=== PATIENT | female | born 1955 | race Caucasian/White ===

== ENCOUNTER → 2016-05-29 | Outpatient (CLI) | payer OTHER ==
[~2016-05-29] VITALS: Ht 160 cm; Wt 81.2 kg
[~2016-05-29] MED LIST: ASPI1TAB PO; ATOR40TA PO; CALC500T49 PO; FENO160T10 PO; FOSA70TA PO; LIDOCAINE 2% INJ 100 MG/5 ML SDV (FOR ANES.) As Ordered ONE; LISI10TA2 PO; METF500T PO; NS 1,000 ML IV SCH; OMEP40CA2 PO; PROPOFOL 200 MG/20 ML VIAL As Ordered ONE; VITA50003 PO
--- NOTE | 2016-05-29 11:32 | ROOR ---
Patient Name: Romelia Esteban Procedure Date: 05/29/2016 11:16 AM Date of : 1955 Age: 60 Room: [facility] Gender: Female Note Status: Finalized Procedure: Upper GI endoscopy Indications: Heartburn, Abnormal UGI series Providers: Dimitris MAI MD Referring MD: CARLA DURÁN MD Requesting Provider: Medicines: Monitored Anesthesia Care Complications: No immediate complications. Procedure: Pre-Anesthesia Assessment: - The heart rate, respiratory rate, oxygen saturations, blood pressure, adequacy of pulmonary ventilation, and response to care were monitored throughout the procedure. The Endoscope was introduced through the mouth, and advanced to the second part of duodenum. The upper GI endoscopy was accomplished without difficulty. The patient tolerated the procedure well. Findings: The examined esophagus was normal. Very small (insignificant) Hiatal Hernia. Mild inflammation characterized by erosions was found on the greater curvature of the stomach. Biopsies were taken with a cold forceps for histology. The exam of the stomach was otherwise normal. The examined duodenum was normal. Impression: - Normal esophagus. - Very small (insignificant) Hiatal Hernia. - Mild gastritis with a few shallow linear erosions. Biopsied. - Stomach is otherwise normal. - Normal examined duodenum. Recommendation: - Use Prilosec (omeprazole) 40 mg PO daily. - No ibuprofen, naproxen, or other non-steroidal anti-inflammatory drugs. - Tylenol is OK to use. - Telephone endoscopist for pathology results in 2 weeks. Dimitris Mai MD Dimitris MAI MD 05/29/2016 11:31:48 AM This report has been signed electronically. Number of Addenda: 0 Note Initiated On: 05/29/2016 11:16 AM Estimated Blood Loss: Estimated blood loss: none.
--- NOTE | 2016-05-29 11:46 | ROOR ---
Patient Name: Romelia Esteban Procedure Date: 05/29/2016 11:18 AM Date of : 1955 Age: 60 Room: [facility] Gender: Female Note Status: Finalized Procedure: Colonoscopy Indications: Screening for colorectal malignant neoplasm Providers: Dimitris MAI MD Referring MD: CARLA DURÁN MD Requesting Provider: Medicines: Monitored Anesthesia Care Complications: No immediate complications. Procedure: Pre-Anesthesia Assessment: - The heart rate, respiratory rate, oxygen saturations, blood pressure, adequacy of pulmonary ventilation, and response to care were monitored throughout the procedure. The Colonoscope was introduced through the anus and advanced to the cecum, identified by appendiceal orifice and ileocecal valve. The colonoscopy was performed without difficulty. The patient tolerated the procedure well. The quality of the bowel preparation was good. Findings: The perianal and digital rectal examinations were normal. Three sessile polyps were found in the recto-sigmoid colon and sigmoid colon. The polyps were diminutive in size. These polyps were removed with a cold snare. Resection and retrieval were complete. A few small-mouthed diverticula were found in the sigmoid colon. Internal hemorrhoids were found during retroflexion. The hemorrhoids were moderate. The exam was otherwise without abnormality on direct and retroflexion views. Impression: - Three diminutive polyps at the recto-sigmoid colon and in the sigmoid colon, removed with a cold snare. Resected and retrieved. - Mild diverticulosis in the sigmoid colon. - Internal hemorrhoids. - The examination was otherwise normal on direct and retroflexion views. Recommendation: - Await pathology results. - Telephone endoscopist for pathology results in 2 weeks. - If the pathology report reveals adenomatous tissue, then repeat the colonoscopy for surveillance in 3 years. - If the pathology report indicates hyperplastic polyp, then repeat colonoscopy for screening purposes in 10 years. Dimitris Mai MD Dimitris MAI MD 05/29/2016 11:46:01 AM This report has been signed electronically. Number of Addenda: 0 Note Initiated On: 05/29/2016 11:18 AM Estimated Blood Loss: Estimated blood loss: none.
[2016-05-29 12:10] VITALS: BP 130/78
== END ==
LOC: M OPP 10:41
PROVIDERS: ATTEND Internal Medicine Gastroenterology
DX: Z12.11 Encounter for screening for malignant neoplasm of colon (principal); D12.7 Benign neoplasm of rectosigmoid junction; D12.5 Benign neoplasm of sigmoid colon; K57.30 Diverticulosis of large intestine without perforation or abscess without bleeding; K64.8 Other hemorrhoids; R12 Heartburn; R93.3 Abnormal findings on diagnostic imaging of other parts of digestive tract; K29.70 Gastritis, unspecified, without bleeding; I10 Essential (primary) hypertension; Z79.82 Long term (current) use of aspirin; Z79.899 Other long term (current) drug therapy; Z88.8 Allergy status to other drugs, medicaments and biological substances

== ENCOUNTER → 2016-09-18 | Outpatient (CLI) | payer OTHER ==
[~2016-09-18] MED LIST changes: -LIDOCAINE 2% INJ 100 MG/5 ML SDV (FOR ANES.) As Ordered ONE; -NS 1,000 ML IV SCH; -PROPOFOL 200 MG/20 ML VIAL As Ordered ONE
[2016-09-18 11:07] LABS: MEAN CORPUSCULAR HEMOGLOBIN 30.8 pg (27.0-33.0); MEAN CORPUSCULAR HGB CONC 33.4 g/dl (32.0-36.5); MEAN CORPUSCULAR VOLUME 92.2 fl (80.0-96.0); RED CELL DISTRIBUTION WIDTH 13.5 % (11.5-14.5); WHITE BLOOD COUNT 6.5 K/mm3 (4.0-10.0)
[2016-09-18 11:45] LABS: ALBUMIN 3.8 GM/DL (3.2-5.2); ALKALINE PHOSPHATASE 78 U/L (45-117); ALT/SGPT 40 U/L (12-78); ANION GAP 7 MEQ/L (8-16); AST/SGOT 21 U/L (15-37); BILIRUBIN,TOTAL 0.6 MG/DL (0.2-1.0); BLOOD UREA NITROGEN 13 MG/DL (7-18); CALCIUM LEVEL 10.3 MG/DL (8.8-10.2); CARBON DIOXIDE LEVEL 30 MEQ/L (21-32); CHLORIDE LEVEL 104 MEQ/L (98-107); CHOLESTEROL LEVEL 163 MG/DL (<200); GLOMERULAR FILTRATION RATE > 60.0 (>45); GLUCOSE, FASTING 93 MG/DL (80-110); SODIUM LEVEL 141 MEQ/L (136-145); TOTAL PROTEIN 7.6 GM/DL (6.4-8.2); TRIGLYCERIDES LEVEL 162 MG/DL (<150)
== END ==
LOC: M LAB 09:22
PROVIDERS: ATTEND Family Medicine
DX: E78.5 Hyperlipidemia, unspecified (principal); I10 Essential (primary) hypertension; E55.9 Vitamin D deficiency, unspecified

== ENCOUNTER → 2016-12-17 | Outpatient (CLI) | payer OTHER ==
[~2016-12-17] MED LIST changes: -ATOR40TA PO; +ATOR40TA75 PO; -METF500T PO; +METF500T13 PO; +VITA1CAP40 PO; -VITA50003 PO
[2016-12-17 11:06] LABS: MEAN CORPUSCULAR HEMOGLOBIN 30.9 pg (27.0-33.0); MEAN CORPUSCULAR HGB CONC 33.9 g/dl (32.0-36.5); MEAN CORPUSCULAR VOLUME 91.2 fl (80.0-96.0); RED CELL DISTRIBUTION WIDTH 13.8 % (11.5-14.5); WHITE BLOOD COUNT 5.8 K/mm3 (4.0-10.0)
[2016-12-17 11:21] LABS: ALBUMIN 3.6 GM/DL (3.2-5.2); ALBUMIN/GLOBULIN RATIO 1.03 (1.00-1.93); ALKALINE PHOSPHATASE 73 U/L (45-117); ALT/SGPT 28 U/L (12-78); ANION GAP 5 MEQ/L (8-16); AST/SGOT 22 U/L (15-37); BILIRUBIN,TOTAL 0.9 MG/DL (0.2-1.0); BLOOD UREA NITROGEN 15 MG/DL (7-18); CALCIUM LEVEL 9.4 MG/DL (8.8-10.2); CARBON DIOXIDE LEVEL 31 MEQ/L (21-32); CHLORIDE LEVEL 106 MEQ/L (98-107); CHOLESTEROL LEVEL 165 MG/DL (<200); CREATININE FOR GFR 0.78 MG/DL (0.55-1.02); GLOMERULAR FILTRATION RATE > 60.0 (>45); GLUCOSE, FASTING 93 MG/DL (80-110); POTASSIUM SERUM 3.8 MEQ/L (3.5-5.1); SODIUM LEVEL 142 MEQ/L (136-145); TOTAL PROTEIN 7.1 GM/DL (6.4-8.2); TRIGLYCERIDES LEVEL 134 MG/DL (<150)
== END ==
LOC: M LRY 09:16
PROVIDERS: ATTEND Family Medicine
DX: E78.5 Hyperlipidemia, unspecified (principal); I10 Essential (primary) hypertension; M85.9 Disorder of bone density and structure, unspecified

== ENCOUNTER → 2017-11-26 | Outpatient (CLI) | payer OTHER ==
[2017-11-26 12:43] LABS: HEMATOCRIT 44.4 % (36.0-47.0); HEMOGLOBIN 14.7 g/dl (12.0-15.5); MEAN CORPUSCULAR HEMOGLOBIN 30.2 pg (27.0-33.0); MEAN CORPUSCULAR HGB CONC 33.1 g/dl (32.0-36.5); MEAN CORPUSCULAR VOLUME 91.4 fl (80.0-96.0); PLATELET COUNT, AUTOMATED 193 10^3/uL (150-450); RED BLOOD COUNT 4.86 10^6/uL (4.00-5.40); RED CELL DISTRIBUTION WIDTH 13.8 % (11.5-14.5); WHITE BLOOD COUNT 6.4 10^3/uL (4.0-10.0)
[2017-11-26 13:21] LABS: ALBUMIN 3.9 GM/DL (3.2-5.2); ALBUMIN/GLOBULIN RATIO 1.03 (1.00-1.93); ALKALINE PHOSPHATASE 84 U/L (45-117); ALT/SGPT 33 U/L (12-78); ANION GAP 8 MEQ/L (8-16); AST/SGOT 17 U/L (7-37); BILIRUBIN,TOTAL 0.6 MG/DL (0.2-1.0); BLOOD UREA NITROGEN 16 MG/DL (7-18); CALCIUM LEVEL 9.3 MG/DL (8.8-10.2); CARBON DIOXIDE LEVEL 29 MEQ/L (21-32); CHLORIDE LEVEL 105 MEQ/L (98-107); CHOLESTEROL LEVEL 184 MG/DL (<200); CHOLESTEROL RISK RATIO 2.705 (<5); CPK CREATINE PHOSPHOKINASE 66 U/L (26-192); CREATININE FOR GFR 0.86 MG/DL (0.55-1.30); GLOMERULAR FILTRATION RATE > 60.0 (>45); GLUCOSE, FASTING 102 MG/DL (70-100); HDL CHOLESTEROL 68 MG/DL (>40); LDL CHOLESTEROL 81.4 MG/DL (<100); NON-HDL-C 116 MG/DL; POTASSIUM SERUM 4.5 MEQ/L (3.5-5.1); SODIUM LEVEL 142 MEQ/L (136-145); TOTAL PROTEIN 7.7 GM/DL (6.4-8.2); TRIGLYCERIDES LEVEL 173 MG/DL (<150)
[2017-11-26 13:42] LABS: MALB URINE SIEMENS 61.2 MG/L
== END ==
LOC: M LRY 10:31
DX: E78.2 Mixed hyperlipidemia (principal); I10 Essential (primary) hypertension; R73.01 Impaired fasting glucose
CPT/HCPCS: 82550

== ENCOUNTER → 2017-12-10 | Outpatient (CLI) | payer OTHER ==
[2017-12-10 11:11] LABS: ALBUMIN 3.8 GM/DL (3.2-5.2); ALBUMIN/GLOBULIN RATIO 1.03 (1.00-1.93); ALKALINE PHOSPHATASE 74 U/L (45-117); ALT/SGPT 30 U/L (12-78); AST/SGOT 20 U/L (7-37); BILIRUBIN,DIRECT 0.2 MG/DL (0.0-0.2); BILIRUBIN,TOTAL 0.6 MG/DL (0.2-1.0); CHOLESTEROL LEVEL 164 MG/DL (<200); CHOLESTEROL RISK RATIO 2.603 (<5); CPK CREATINE PHOSPHOKINASE 74 U/L (26-192); HDL CHOLESTEROL 63 MG/DL (>40); NON-HDL-C 101 MG/DL; TOTAL PROTEIN 7.5 GM/DL (6.4-8.2); TRIGLYCERIDES LEVEL 150 MG/DL (<150)
== END ==
LOC: M LAB 10:12
DX: E78.2 Mixed hyperlipidemia (principal)
CPT/HCPCS: 82550

== ENCOUNTER 2018-04-24 19:53 | Observation (INO) | payer OTHER ==
[~2018-04-24] VITALS: Ht 165.1 cm; Wt 69.3 kg
[~2018-04-24 19:53] MED LIST changes: -VITA1CAP40 PO; +VITA50005 PO
[2018-04-24] MEDS ORDERED: metoprolol (20:09)
[2018-04-24] MEDS ORDERED: AMLO5TAB4 PO (20:09)
[2018-04-24] MEDS ORDERED: SEVE800T3 PO (20:09)
[2018-04-24 20:50] LABS: BASO # 0.1 10^3/uL (0.0-0.2); EOS # 0.6 10^3/uL (0.0-0.50); EOS % 4.7 % (0.0-3.0); HEMATOCRIT 29.5 % (36.0-47.0); HEMOGLOBIN 9.6 g/dl (12.0-15.5); LYMPH # 2.5 10^3/uL (1.5-4.5); LYMPH % 20.9 % (24.0-44.0); MEAN CORPUSCULAR HEMOGLOBIN 29.4 pg (27.0-33.0); MEAN CORPUSCULAR HGB CONC 32.5 g/dl (32.0-36.5); MEAN CORPUSCULAR VOLUME 90.5 fl (80.0-96.0); MONO # 1.2 10^3/uL (0.0-0.8); MONO % 9.8 % (0.0-5.0); NEUTROPHILS # 7.5 10^3/uL (1.8-7.7); NEUTROPHILS % 62.5 % (36.0-66.0); PLATELET COUNT, AUTOMATED 260 10^3/uL (150-450); RED BLOOD COUNT 3.26 10^6/uL (4.00-5.40)
[2018-04-24 21:02] LABS: INR 1.1; PROTHROMBIN TIME 14.3 SECONDS (12.1-14.4)
[2018-04-24 21:03] LABS: PARTIAL THROMBOPLASTIN TIME 24.9 SECONDS (25.4-37.6)
--- NOTE | 2018-04-24 21:24 | REPVR ---
EXAM: US Bilateral Duplex Lower Extremity Veins EXAM DATE/TIME: 04/24/2018 9:11 PM CLINICAL HISTORY: 62 years old, female; Abnormal findings; Abnormal lab test; Elevated d-dimer; Additional info: Positive d-dimer, recent surgery TECHNIQUE: Real-time duplex ultrasound of the Bilateral Lower Extremities with 2-D foley scale, color Doppler flow and spectral waveform analysis. Complete exam focused on the bilateral lower extremity veins. COMPARISON: No relevant prior studies available. FINDINGS: Right deep veins: Unremarkable. The common femoral, femoral and popliteal veins are patent without thrombus. Normal compressibility, augmentation response and Doppler waveforms. Right superficial veins: Saphenofemoral junction is patent without thrombus. Left deep veins: Unremarkable. The common femoral, femoral and popliteal veins are patent without thrombus. Normal compressibility, augmentation response and Doppler waveforms. Left superficial veins: Saphenofemoral junction is patent without thrombus. Soft tissues: Unremarkable. IMPRESSION: No sonographic evidence of deep vein thrombosis. Electronically signed by: Demario Hernandez On 04/24/2018 21:24:01 PM
[2018-04-24 21:35] LABS: ALBUMIN 3.3 GM/DL (3.2-5.2); ALT/SGPT 17 U/L (12-78); BILIRUBIN,DIRECT 0.1 MG/DL (0.0-0.2); BILIRUBIN,TOTAL 0.3 MG/DL (0.2-1.0); BLOOD UREA NITROGEN 20 MG/DL (7-18); CALCIUM LEVEL 8.5 MG/DL (8.8-10.2); CARBON DIOXIDE LEVEL 28 MEQ/L (21-32); CHLORIDE LEVEL 103 MEQ/L (98-107); CK-MB VALUE MASS < 1.0 NG/ML (<3.6); CPK CREATINE PHOSPHOKINASE 40 U/L (26-192); CREATININE FOR GFR 2.72 MG/DL (0.55-1.30); GLOMERULAR FILTRATION RATE 18.8 (>45); GLUCOSE, FASTING 105 MG/DL (70-100); NT-PRO BNP 463 PG/ML (<125); POTASSIUM SERUM 2.9 MEQ/L (3.5-5.1); SODIUM LEVEL 141 MEQ/L (136-145); TROPONIN I < 0.02 NG/ML (< 0.10)
[2018-04-24 21:57] LABS: MAGNESIUM LEVEL 1.7 MG/DL (1.8-2.4)
[2018-04-24] MEDS ORDERED: MAG SULF 1GM/100ML (MAG RUN) 1 GM in APPROPRIATE DILUENT 1 EA IV ONE (22:15)
[2018-04-24] MEDS ORDERED: POTASSIUM CHLORIDE 10 MEQ SR TABLET PO ONE (22:15)
[2018-04-24] MEDS ORDERED: METO25TA4 PO (22:19)
[2018-04-24] MEDS ORDERED: METF500T13 PO (22:19)
[2018-04-24] MEDS ORDERED: FOSA70TA PO (22:20)
[2018-04-24] MEDS ORDERED: BISACODYL 5 MG TAB PO PRN (23:00)
[2018-04-24] MEDS ORDERED: ONDANSETRON 4MG/2ML VIAL (J2405) IV PRN (23:00)
[2018-04-24] MEDS ORDERED: GLUCAGON FOR INJ 1 MG VIAL (J1610) SC PRN (23:00)
[2018-04-24] MEDS ORDERED: ACETAMINOPHEN TAB 650MG DOSE (2X325MG) PO PRN (23:00)
[2018-04-24] MEDS ORDERED: MAGNESIUM OXIDE 400 MG TAB (MAG-OX) PO ONE (23:00)
[2018-04-24] MEDS ORDERED: BISACODYL 10 MG SUPP PR PRN (23:00)
[2018-04-24] MEDS ORDERED: GLUCOSE 4 GM CHEW TABLET PO PRN (23:00)
[2018-04-24] MEDS ORDERED: DEXTROSE 50% 50 ML SYRINGE IV PRN (23:00)
--- NOTE | 2018-04-24 23:06 | HPEPDOC ---
[facility] Medical History & Physical Date of Admission Apr 24, 2018 Attending Physician: GRISEL MARTINEZ MD History and Physical CHIEF COMPLAINT: [Right-sided chest pain] HISTORY OF PRESENT ILLNESS: [59-year-old female with significant past medical history hyperlipidemia, hypertension, GERD, diabetes who earlier this year had hysterectomy at [place] and subsequently developed multiorgan failure including renal failure and liver failure and thus was transferred to [facility]. Patient states that she did not have LA but may have had LA at that time. Patient has right lower quadrant bruising at the site with of blood to pooled. Her physicians does not know why her blood loss is at that specific location but she is recovering. Her bruising is improving. She recovered from most organ failure but she is still on hemodialysis. Goal is coming off dialysis if her kidney function to recovers. Patient had chest pain that started this past Saturday located in the right side underneath her right breast only when she yawns or takes deep breaths. Patient states the Tylenol seemed to help with the pain. Patient initially tachycardic in the ER but normal he states shes not tachycardic and no palpitation. Patient denies of any fever, cough, sputum production, abdominal pain or diarrhea, or dysuria. She has been doing well in light of but occurred early this month. Patient gets hemodialysis on Saturday, Saturday, Saturday. Due to the holiday, patient saw her PCP today for the right- sided chest pain and PCP obtain d-dimer which was positive. Patient was told to come to the emergency room further evaluation and treatment.ER consulted renal to recommended utilizing V/Q scan incident CT of the chest as patient told to be in a short-term dialysis and will try to avoid contrast at this time. Patient not hypoxemic nor tachycardic. Patient also had lower extremity Doppler which is negative for DVT. Patient is being admitted for further evaluation for VQ scan. Review system: 12 point review systems negative other than those described in HPI Past medical history: Recent multiorgan failure after hysterectomy, acute renal failure resulting in hemodialysis, hypertension, hyperlipidemia, GERD, diabetes Surgical history: Hysterectomy Social history: No smoking, drinking, drug abuse Family medical history: Noncontributory ALLERGIES: Please see below. HOME MEDICATIONS: Please see below. PHYSICAL EXAMINATION: VITAL SIGNS: Please see below GENERAL APPEARANCE: Resting comfortably HEENT: Normocephalic, PERRLA, Mucous moist, CARDIOVASCULAR: S1,S2, pulse present, regularly, regular, not tachycardic, right upper chest hemodialysis port LUNGS: Equal air entry b/l, no wheezes or crackle, not short of breath ABDOMEN: Soft, BS present, no tenderness, no guarding, lower right quadrant bruising that healing, surgical scars without signs of active infection GENITOURINARY: No Garibay EXTREMITIES: B/L no edema, capillary refill present SKIN: Warm, No fever NEUROLOGICAL: Cranial nerves grossly intact PSYCHIATRIC: Normal mood and affect for current situation EKG: Heart rate of 86, no ST elevation, nonspecific ST changes IMAGING: [Lower extremity Doppler bilateral: No sonographic evidence of deep vein thrombosis. ] Assessment and plan: Right sided atypical chest pain. Chest x-ray Telemetry, serial cardiac enzyme, echo VQ scan (CTA chest not utilized in order to preserve patient's renal function if possible) thyroid profile Lower extremity with Doppler negative for DVT I&O monitoring, daily weight Respiratory treatment, oxygen as needed Supportive care with Tylenol Hypokalemia and hypomagnesemia Replace and monitor judiciously as patient is a dialysis patient Telemetry End-stage renal disease on hemodialysis (M, W, F) Consult with Dr. Sim nephrology for dialysis on Saturday Diabetes Finger sick monitoring, hold oral medication sliding scale, utilize long-acting insulin as needed Hypertension Resume amlodipine, metoprolol Hyperlipidemia Resume Statin GERD Resume omeprazole DVT prophylaxis with heparin subcutaneous Vital Signs Vital Signs Date Time Temp Pulse Resp B/P (MAP) Pulse Ox O2 Delivery O2 Flow Rate FiO2 04/24/18 20:02 04/24/18 19:55 98.9 109 18 98 Laboratory Data Labs 24H Laboratory Tests 2 04/24/18 20:44: Immature Granulocyte % (Auto) 1.1, White Blood Count 12.0H, Red Blood Count 3.26L, Hemoglobin 9.6L, Hematocrit 29.5L, Mean Corpuscular Volume 90.5, Mean Corpuscular Hemoglobin 29.4, Mean Corpuscular Hemoglobin Concent 32.5, Red Cell Distribution Width 14.8H, Platelet Count 260, Neutrophils (%) (Auto) 62.5, Lymphocytes (%) (Auto) 20.9L, Monocytes (%) (Auto) 9.8H, Eosinophils (%) (Auto) 4.7H, Basophils (%) (Auto) 1.0, Neutrophils # (Auto) 7.5, Lymphocytes # (Auto) 2.5, Monocytes # (Auto) 1.2H, Eosinophils # (Auto) 0.6H, Basophils # (Auto) 0.1, Nucleated Red Blood Cells % (auto) 0.0, Prothrombin Time 14.3, Prothromb Time International Ratio 1.10, Activated Partial Thromboplast Time 24.9L, Anion Gap 10, Glomerular Filtration Rate 18.8L, Calcium Level 8.5L, Magnesium Level 1.7L, Aspartate Amino Transf (AST/SGOT) 15, Alanine Aminotransferase (ALT/SGPT) 17, Alkaline Phosphatase 101, Total Bilirubin 0.3, Direct Bilirubin 0.1, Total Creatine Kinase 40, Creatine Kinase MB < 1.0, Creatine Kinase MB Relative Index 2.50, Troponin I < 0.02, TD-Jwh-R-Type Natriuretic Peptide 463H, Total Protein 7.0, Albumin 3.3, Albumin/Globulin Ratio 0.89L CBC/BMP Laboratory Tests 04/24/18 20:44 Red Blood Count 3.26 L, Mean Corpuscular Volume 90.5, Mean Corpuscular Hemoglobin 29.4, Mean Corpuscular Hemoglobin Concent 32.5, Red Cell Distribution Width 14.8 H, Neutrophils (%) (Auto) 62.5, Lymphocytes (%) (Auto) 20.9 L, Monocytes (%) (Auto) 9.8 H, Eosinophils (%) (Auto) 4.7 H, Basophils (%) (Auto) 1.0, Neutrophils # (Auto) 7.5, Lymphocytes # (Auto) 2.5, Monocytes # (Auto) 1.2 H, Eosinophils # (Auto) 0.6 H, Basophils # (Auto) 0.1 Home Medications Scheduled Alendronate Sodium (Fosamax) 70 Mg Tab, 70 MG PO 1XWK TAKES ON MONDAYS Amlodipine Besylate (Amlodipine Besylate) 5 Mg Tab, 5 MG PO DAILY Atorvastatin Calcium (Atorvastatin Calcium) 40 Mg Tab, 40 MG PO DAILY Metformin Hydrochloride (Metformin HCl) 500 Mg Tab, 500 MG PO DAILY Metoprolol Tartrate (Metoprolol Tartrate) 25 Mg Tab, 25 MG PO DAILY Omeprazole (Omeprazole) 40 Mg Cap, 40 MG PO Q2D Sevelamer Carbonate (Sevelamer Carbonate) 800 Mg Tab, 800 MG PO TID Allergies Coded Allergies: Dog Dander (Unverified Allergy, Mild, eyes red, itchy, 04/24/18) Bismuth Subsalicylate (Unverified Adverse Reaction, Mild, vomiting, 04/24/18) FELIPE SWANN MD Apr 24, 2018 23:06
[2018-04-25 05:56] LABS: HEMOGLOBIN 9.4 g/dl (12.0-15.5); MEAN CORPUSCULAR HEMOGLOBIN 29.5 pg (27.0-33.0); MEAN CORPUSCULAR HGB CONC 32.4 g/dl (32.0-36.5); MEAN CORPUSCULAR VOLUME 90.9 fl (80.0-96.0); PLATELET COUNT, AUTOMATED 240 10^3/uL (150-450); RED BLOOD COUNT 3.19 10^6/uL (4.00-5.40); WHITE BLOOD COUNT 9.8 10^3/uL (4.0-10.0)
[2018-04-25] MEDS: HEPARIN SOD (PORCINE) 5000 UNITS/ML VIAL SC SCH ×3 (06:29→21:27)
[2018-04-25 06:36] LABS: BLOOD UREA NITROGEN 21 MG/DL (7-18); CALCIUM LEVEL 8.8 MG/DL (8.8-10.2); CARBON DIOXIDE LEVEL 27 MEQ/L (21-32); CHLORIDE LEVEL 108 MEQ/L (98-107); CK-MB VALUE MASS < 1.0 NG/ML (<3.6); CPK CREATINE PHOSPHOKINASE 32 U/L (26-192); CREATININE FOR GFR 2.77 MG/DL (0.55-1.30); FREE THYROXINE INDEX 2.9 % (1.3-4.8); GLOMERULAR FILTRATION RATE 18.4 (>45); GLUCOSE, FASTING 96 MG/DL (70-100); MB/CK RELATIVE INDEX 3.12 (< OR =4); POTASSIUM SERUM 3.1 MEQ/L (3.5-5.1); SODIUM LEVEL 144 MEQ/L (136-145); T UPTAKE 34 % (30-39); THYROID STIMULATING HORMONE 0.339 uIU/ML (0.358-3.740); THYROXINE (T4) 8.6 UG/DL (4.5-12.0); TROPONIN I < 0.02 NG/ML (< 0.10)
[2018-04-25 07:10] LABS: MAGNESIUM LEVEL 2.3 MG/DL (1.8-2.4)
[2018-04-25] MEDS: HumaLOG INSULIN (NovoLOG) PER UNIT SC SCH ×3 (07:30→17:40)
[2018-04-25] MEDS ORDERED: POTASSIUM CHLORIDE 10 MEQ SR TABLET PO ONE (08:00)
--- NOTE | 2018-04-25 08:06 | REP ---
Portable chest x-ray: Single view. History: Chest pain. No comparison chest x-ray. Findings: A right-sided tunnel catheter is seen in place with its tip in the expected location of the right atrium. The lungs are symmetrically aerated and clear. Pleural angles are sharp. Cardiomediastinal silhouette is unremarkable. EKG monitoring electrodes are noted. Impression: No acute disease. Right-sided tunnel catheter in place. Electronically Signed by Robert Zamudio MD 04/25/2018 08:20 A
[2018-04-25] MEDS: amLODIPine 5 MG TAB PO SCH (08:26)
[2018-04-25] MEDS: METOPROLOL TART 25 MG TABLET PO SCH (08:26)
[2018-04-25] MEDS: ATORVASTATIN 20 MG TAB PO SCH (08:27)
[2018-04-25] MEDS ORDERED: OMEPRAZOLE 20 MG CAP PO SCH (09:00)
--- NOTE | 2018-04-25 09:54 | IPNPDOC ---
Text Note Date of Service The patient was seen on 04/25/18. NOTE Chief complaint: Right-sided chest SUBJECTIVE: Patient is a 62-year-old female with past medical history of hyperlipidemia,hypertension, GERD, diabetes, multiorgan failure including renal failure and liver failure, following a hysterectomy. She is currently on dialysis, scheduled for Saturday, with Saturday. She presented to her PCP yesterday due to right-sided chest pain, that was agrevated by deep breath and yawning. Her PCP ordered D-dimer, which is elevated. Patient was subsequently sent to the ED for further evaluation for possible PE. On intial presentation, patient was tachycardic. A v/q scan was preformed, due to patient being unable to tolerate CT with contrast due to her renal failure. The V/Q scan was negative, and well as a lower extremity doppler for DVT. She was examined at bedside this morning. She is complaining of right-sided is worse with deep breath and yawning. Denies other chest pain, denies nausea, denied vomiting, denies changes in vision.. Denies shortness of breath, or difficulty breathing. Patient was afebrile at night prior. No overnight activities OBJECTIVE: PHYSICAL EXAMINATION: GENERAL APPEARANCE: Alert no acute distress, resting comfortably in bed, complains of pain with deep breath SKIN: Warm, well perfused. Right upper chest hemodialysis port ENT: Palate intact, foley tympanic membrane no bulging, no erythema, Neck supple, no thyromegaly LUNGS: Clear to auscultation bilaterally. Complaints of chest pain with full trae st expansion HEART: Normal S1, S2. No murmurs, no rubs, no gallops ABDOMEN: Soft. No masses. Bowel sounds are present. Musculoskeletal: palpable tenderness on patient's rib approximately rib #4 on patients backa and anterior chest EXTREMITIES: Moves all extremities equally. No gross deformities. PULSES: 2+ upper and lower extremity . LABORATORY DATA: Please see below. IMAGING: Chest Xray: No acute disease. Right-sided tunnel catheter in place. (04/25/18) V/Q scan: No sonographic evidence of deep vein thrombosis. ASSESSMENT AND PLAN: A 62-year-old female presenting with right sided chest pain. She has a past medical history of diabetes, GERD, multiple failure including renal failure, currently on dialysis Saturday, Saturday and Saturday. She was admitted for PE, rule out, as well as continue dialysis. Plan: Right-sided chest, unknown etiology, rule out rib fracture, rule out PE, muscle strain is also a possibility. Rule out GA. Perhaps secondary to upper respiratory virus. --EKG did not indicate any GA, troponins negative, initial and repeat --Chest x-ray did not show any rib fractures --Lower extremity Doppler was negative --VQ scan negative --Respiratory panel negative --Manage pain with supportive care Tachycardia --Resolved, patient denied any chest pain, denies any breathing difficulty, denies any nausea, denies any vomiting, denies any pain in her calves. We'll co ntinue monitoring End-stage renal disease on hemodialysis (M, W, F) --Consult with Dr. Sim nephrology for dialysis on Saturday --Hold nephrotoxins, metformin Hypokalemia and hypomagnesemia --replacement ordered, --Telemetry --Nephrology consulted for dialysis Diabetes Finger sick monitoring, hold oral medication sliding scale, utilize long-acting insulin as needed Hypertension Resume amlodipine, metoprolol Hyperlipidemia Resume Statins GERD Resume omeprazole DVT prophylaxis with heparin subcutaneous VS,Fishbone, I+O VS, Fishbone, I+O Laboratory Tests 04/24/18 20:44 Red Blood Count 3.26 L, Mean Corpuscular Volume 90.5, Mean Corpuscular Hemoglobin 29.4, Mean Corpuscular Hemoglobin Concent 32.5, Red Cell Distribution Width 14.8 H, Neutrophils (%) (Auto) 62.5, Lymphocytes (%) (Auto) 20.9 L, Monocytes (%) (Auto) 9.8 H, Eosinophils (%) (Auto) 4.7 H, Basophils (%) (Auto) 1.0, Neutrophils # (Auto) 7.5, Lymphocytes # (Auto) 2.5, Monocytes # (Auto) 1.2 H, Eosinophils # (Auto) 0.6 H, Basophils # (Auto) 0.1 04/25/18 05:31 Red Blood Count 3.19 L, Mean Corpuscular Volume 90.9, Mean Corpuscular Hemoglobin 29.5, Mean Corpuscular Hemoglobin Concent 32.4, Red Cell Distribution Width 15.3 H, Calcium Level 8.8, Total Creatine Kinase 32 Vital Signs Date Time Temp Pulse Resp B/P (MAP) Pulse Ox O2 Delivery O2 Flow Rate FiO2 04/25/18 08:31 154/72 (99) 04/25/18 08:30 90 100 Room Air 04/25/18 07:30 98.0 18 I&O- Last 24 Hours up to 6 AM 04/25/18 05:59 Intake Total 125 ml Balance 125 ml GME ATTESTATION GME ATTESTATION My faculty preceptor for this patient encounter was physically present during the encounter and was fully available. All aspects of the patient interview, examination, medical decision making process, and medical care plan development were reviewed and approved by the faculty preceptor. The faculty preceptor is aware and concurs with the plan as stated in the body of this note and will attest to such by his/her cosignature. EDI BOLTON DO Apr 25, 2018 09:54
[2018-04-25] MEDS ORDERED: HEPARIN 1,000 UNITS/ML 10ML VIAL (FOR RADIOLOGY& DIALYSIS ONLY) XX ONE (13:30)
[2018-04-25] MEDS ORDERED: HEPARIN 1,000 UNITS/ML 10ML VIAL (FOR RADIOLOGY& DIALYSIS ONLY) IV ONE (13:30)
--- NOTE | 2018-04-25 13:59 | REP ---
VENTILATION-PERFUSION LUNG SCAN: HISTORY: Chest pain. Comparison is made with today's chest x-ray. TECHNIQUE: 1.0 mm technetium 99m DTPA aerosol is administered for the ventilation study and is followed by a 5.5 mCi dose of technetium-99m MAA given for the perfusion exam. A sequence of eight planar images are acquired for each portion of the study. SCINTIGRAPHIC FINDINGS: There is some central bronchial deposition of inspired tracer on the ventilation images bilaterally consistent with some degree of COPD. Ventilatory uptake is patchy bilaterally. The perfusion scan images. In general, distribution of perfusion uptake is more homogeneous than ventilatory uptake. There is a matched ventilation perfusion defect on the right laterally. There is also a matched ventilation perfusion defect posterosuperiorly on the left. No mismatched defect is seen. IMPRESSION: Low probability scan for pulmonary embolism. Electronically Signed by Robert Zamudio MD 04/25/2018 04:16 P
[2018-04-25 16:15] VITALS: BP 146/68
[2018-04-25 18:08] LABS: BLOOD UREA NITROGEN 7 MG/DL (7-18); CALCIUM LEVEL 9.5 MG/DL (8.8-10.2); CARBON DIOXIDE LEVEL 28 MEQ/L (21-32); CHLORIDE LEVEL 103 MEQ/L (98-107); CK-MB VALUE MASS < 1.0 NG/ML (<3.6); CPK CREATINE PHOSPHOKINASE 32 U/L (26-192); CREATININE FOR GFR 1.31 MG/DL (0.55-1.30); GLOMERULAR FILTRATION RATE 43.7 (>45); GLUCOSE, FASTING 110 MG/DL (70-100); MB/CK RELATIVE INDEX 3.12 (< OR =4); POTASSIUM SERUM 3.5 MEQ/L (3.5-5.1); SODIUM LEVEL 139 MEQ/L (136-145); TROPONIN I < 0.02 NG/ML (< 0.10)
--- NOTE | 2018-04-25 18:34 | ECGEPIP ---
Stationary ECG Study [facility] - ED Test Date: 2018-04-24 Pat Name: RUY BARKER Department: Room: [place] [address] Gender: F Forestry Conservation Worker: eliana : 1955 Requested By: SARAH Robertson Order Number: [id number] Reading MD: Grover Vogel Measurements Intervals [place] Rate: 86 P: 2 UT: 198 QRS: 95 QRSD: 95 T: 13 QT: 385 QTc: 463 Interpretive Statements SINUS RHYTHM POSSIBLE LEFT ATRIAL ENLARGEMENT RIGHT AXIS DEVIATION POSSIBLE INFERIOR MYOCARDIAL INFARCTION, PROBABLY OLD WITH POSTERIOR EXTENSION NO PRIORS FOR COMPARISON Electronically Signed On 04-25-2018 18:34:17 EST by Grover Vogel
[2018-04-25] MEDS ORDERED: HumaLOG INSULIN (NovoLOG) PER UNIT SC SCH (21:00)
[2018-04-25 21:40] LABS: CK-MB VALUE MASS < 1.0 NG/ML (<3.6); CPK CREATINE PHOSPHOKINASE 27 U/L (26-192); TROPONIN I < 0.02 NG/ML (< 0.10)
[2018-04-25 22:00] VITALS: BP 136/66
--- NOTE | 2018-04-25 22:36 | CR ---
INITIAL NEPHROLOGY CONSULTATION: 04/25/2018 REQUESTING PHYSICIAN: Merline Alvarado MD CONSULTING PHYSICIAN: Narinder Sim MD REASON FOR CONSULTATION: Management of renal failure and hemodialysis. CHIEF COMPLAINT: Patient was transferred from [facility] yesterday for progressive shortness of breath and rule out pulmonary embolism. HISTORY OF PRESENT ILLNESS: Romelia Esteban is a 62-year-old female who is known to nephrology service from outpatient hemodialysis center. She has been recently started on hemodialysis after an acute renal failure. The patient had hysterectomy at [facility] and because of hemorrhage, because of complicated hysterectomy with a large fibroid uterus, she went into hemorrhagic shock and developed multiorgan failure. She was transferred to [place] where she was started on hemodialysis. Patient is being dialyzed as outpatient, has acute renal failure and her weekly labs are being checked for improvement of renal function. Patient recently had chest pain so she was sent to the [facility] for further evaluation and because of her history of multiorgan failure. [facility] sent the patient to [facility] for further evaluation and to rule out pulmonary embolism and to do a V/Q scan in a patient who has acute renal failure and they wanted to avoid contrast in this patient. Patient was discussed by myself with the ER physician yesterday and the decision was made to do Dopplers of the bilateral lower extremities and do a V/Q scan to rule out pulmonary embolism. Patient was admitted under the hospitalist service. Nephrology service was called for further management of end-stage renal disease and hemodialysis. I saw and evaluated the patient today morning. She had just come back after getting a V/Q scan done. Patient was getting hemodialysis done. She is tolerating the hemodialysis procedure. She denies any shortness of breath. She reports mild amount of pain in the ribcage on the right sided chest wall. She denies any other active complaints. PAST MEDICAL HISTORY: History of multiorgan failure after hysterectomy. Currently on hemodialysis after acute renal failure. Hypertension. Hyperlipidemia. Diabetes mellitus, type 2. Gastroesophageal reflux disease. PAST SURGICAL HISTORY: Status post hysterectomy which was complicated by shock. Status post tunneled hemodialysis catheter placement. ALLERGIES: Patient is allergic to BISMUTH. DOG DANDER. FAMILY HISTORY: No significant family history of end-stage renal disease requiring hemodialysis. SOCIAL HISTORY: Patient lives at home. Denies any illicit drug abuse, alcohol or smoking. REVIEW OF SYSTEMS: CONSTITUTIONAL: The patient denies any fever or chills. EYES: She denies any blurry vision, double vision. ENT: She denies any dysphagia, odynophagia or ear discharge. CARDIOVASCULAR: She denies any chest pain, palpitations. RESPIRATORY: She reports no shortness of breath at this time. GASTROINTESTINAL (GI): She denies any nausea or vomiting. GENITOURINARY: She denies any dysuria or hematuria. She reports that she is making more urine. MUSCULOSKELETAL: She denies any muscles aches or pains. CENTRAL NERVOUS SYSTEM: She denies any strokes or seizures. SKIN: She denies any rashes or ulcers. ENDOCRINE: She reports history of diabetes mellitus, type 2. HEMATOLOGICAL/ONCOLOGICAL: She denies any easy bleeding or bruising. All other review of system is negative. PHYSICAL EXAMINATION: GENERAL: The patient is awake, alert and oriented times three. Laying in bed. Getting hemodialysis done. No apparent distress. VITAL SIGNS: Temperature is 98.2 degrees Fahrenheit, blood pressure 138/65, pulse is 69, respiratory rate of 18, saturating 96% on room air. HEAD/NECK: Extraocular muscles intact. Pupils equally round and reactive to light. Mucous membranes are moist. Neck is supple. There is no jugular venous distention (JVD). CARDIOVASCULAR: S1, S2, regular rate. No murmur, rub or gallop. RESPIRATORY: Chest is clear to auscultation bilaterally. Bilateral equal air entry. No rales or rhonchi. ABDOMEN: Soft. Positive bowel sounds. Nontender. No organomegaly. Old left laparoscopic surgical scars are visible. GENITOURINARY: Bladder was no palpable. No hernia noted. MUSCULOSKELETAL: No clubbing or cyanosis. Pulses are 2+. CENTRAL NERVOUS SYSTEM: No focal deficit. Power is 5/5 in all extremities. AV ACCESS: She has a right IJ tunneled hemodialysis catheter being used for dialysis at this point. LAB REVIEW: CBC showed a WBC of 12 yesterday, it is 9.8 today. Hemoglobin is 9.4. Platelets are 240. INR is 1.1. BMP showed sodium 144, potassium 3.1, chloride 108, bicarbonate is 27, BUN 21, creatinine is 2.7. Troponin is less than 0.02. TSH is 0.33. Free T4 is 8.6. Microbiology: Respiratory viral panel is negative. IMAGING: V/Q scan of the lung was done which has low probability for pulmonary embolism (PE). Doppler of the bilateral lower extremities is done which showed no evidence of deep venous thrombosis (DVT). CURRENT INPATIENT MEDICATIONS: The patient's medication include: - mag-sulfate 1 gram IV times one dose - Tylenol as needed - amlodipine 5 mg daily - Lipitor 40 mg daily - insulin Lispro sliding scale - mag oxide 400 mg by mouth twice a day - metoprolol 25 mg by mouth daily - omeprazole 40 mg daily - Zofran as needed - potassium chloride 40 mEq by mouth one dose was given today morning ASSESSMENT: 62-year-old female currently hemodialysis dependent after acute renal failure secondary to shock and multiorgan failure, history of diabetes, and hypertension, admitted this time because of right-sided chest pain and shortness of breath and rule out pulmonary embolism. PLAN: 1. End-stage renal disease on hemodialysis. Patient's regular dialysis days are Saturday, Saturday, Saturday. Labs are being checked weekly for improvement of renal function. Her creatinine is still high. I would do her hemodialysis today for three hours, minimal ultrafiltration is done during dialysis because we are giving her kidney some time to recover. 2. Right-sided atypical chest pain. Chest x-rays did not show anything. V/Q scan was done which showed low probability of pulmonary embolism. I would avoid giving IV contrast to this patient who is recovering from acute renal failure. Doppler is also negative. Patient is asymptomatic. Continue supportive management at this point. 3. Hypertension. Blood pressure is acceptable. Continue current dose of amlodipine and metoprolol. 4. Diabetes mellitus type 2. Continue sliding scale. The rest of the management is as per primary team. 5. Anemia and end-stage renal disease. Hemoglobin is 9.4. Anemia management will be done as outpatient. 6. Chronic kidney disease. Mineral bone disease. Continue current dose of Renvela 800 mg by mouth three times a day. Thank you for involving me in the care of this patient. I should be happy to follow the patient along with you tomorrow morning.
[2018-04-26 02:00] VITALS: BP 140/81
[2018-04-26] MEDS: HEPARIN SOD (PORCINE) 5000 UNITS/ML VIAL SC SCH ×2 (05:27→14:00)
[2018-04-26 05:58] LABS: HEMATOCRIT 31.9 % (36.0-47.0); HEMOGLOBIN 10.4 g/dl (12.0-15.5); MEAN CORPUSCULAR HEMOGLOBIN 29.4 pg (27.0-33.0); MEAN CORPUSCULAR HGB CONC 32.6 g/dl (32.0-36.5); MEAN CORPUSCULAR VOLUME 90.1 fl (80.0-96.0); PLATELET COUNT, AUTOMATED 237 10^3/uL (150-450); RED BLOOD COUNT 3.54 10^6/uL (4.00-5.40); WHITE BLOOD COUNT 9.1 10^3/uL (4.0-10.0)
[2018-04-26 06:00] VITALS: BP 132/75
[2018-04-26 06:25] LABS: CALCIUM LEVEL 9.3 MG/DL (8.8-10.2); CREATININE FOR GFR 2.11 MG/DL (0.55-1.30); GLOMERULAR FILTRATION RATE 25.2 (>45); POTASSIUM SERUM 3.4 MEQ/L (3.5-5.1)
[2018-04-26] MEDS ORDERED: FLUBLOK(EGG FREE)(QUAD)INFLUENZA VACC 0.5ML SYRINGE (90682)18YRS&OLDER IM ONE (07:00)
[2018-04-26] MEDS: HumaLOG INSULIN (NovoLOG) PER UNIT SC SCH ×2 (07:22→12:36)
[2018-04-26] MEDS ORDERED: POTASSIUM CHLORIDE 10 MEQ SR TABLET PO ONE (08:00)
[2018-04-26 08:53] VITALS: BP 159/87
[2018-04-26] MEDS: ATORVASTATIN 20 MG TAB PO SCH (08:53)
[2018-04-26] MEDS: amLODIPine 5 MG TAB PO SCH (08:53)
[2018-04-26] MEDS: METOPROLOL TART 25 MG TABLET PO SCH (08:53)
[2018-04-26 10:00] VITALS: BP 144/76
--- NOTE | 2018-04-26 10:33 | IPNPDOC ---
Text Note Date of Service The patient was seen on 04/26/18. NOTE Chief complaint: Right-sided chest SUBJECTIVE: Patient is a 62-year-old female with past medical history of hyperlipidemia,hypertension, GERD, diabetes, multiorgan failure including renal failure and liver failure, following a hysterectomy. She is currently on dialysis, scheduled for Saturday, with Saturday. She presented to her PCP yesterday due to right-sided chest pain, that was agrevated by deep breath and yawning. Her PCP ordered D-dimer, which is elevated. Patient was subsequently sent to the ED for further evaluation for possible PE. On intial presentation, patient was tachycardic. A v/q scan was preformed, due to patient being unable to tolerate CT with contrast due to her renal failure. The V/Q scan was negative, and well as a lower extremity doppler for DVT. Patient was examined at bedside. She is status post dialysis. She stated she feels fine. She continues to complain of right-sided rib pain. Denies chest pain, denies nausea, denied vomiting, denies changes in vision. Denies any recent illness. Denies shortness of breath, or difficulty breathing. OBJECTIVE: PHYSICAL EXAMINATION: GENERAL APPEARANCE: Alert no acute distress, resting comfortably in bed SKIN:Right upper chest hemodialysis port LUNGS: Clear to auscultation bilaterally. Complaints of chest pain with full chest expansion HEART: Normal S1, S2. No murmurs, no rubs, no gallops ABDOMEN: Soft. No masses. Bowel sounds are present. Musculoskeletal: palpable tenderness on patient's rib approximately rib #4 on patients anterior chest wall EXTREMITIES: Moves all extremities equally. No gross deformities. LABORATORY DATA: Please see below. IMAGING: Chest Xray: No acute disease. Right-sided tunnel catheter in place. (04/25/18) V/Q scan: No sonographic evidence of deep vein thrombosis. ASSESSMENT AND PLAN: A 62-year-old female presenting with right sided chest pain. She has a past medical history of diabetes, GERD, multiple failure including renal failure, currently on dialysis Saturday, Saturday and Saturday. She was admitted for PE, rule out, as well as continue dialysis. Plan: Right-sided chest, unknown etiology, rule out rib fracture, rule out PE, muscle strain is also a possibility. Rule out ID. Perhaps secondary to upper respiratory virus. --EKG did not indicate any ID, troponins negative, initial and repeat --Chest x-ray did not show any rib fractures --Lower extremity Doppler was negative --VQ scan negative --Respiratory panel negative --Manage pain with supportive care End-stage renal disease on hemodialysis (M, W, F) --Consult with Dr. Sim, nephrology for dialysis --Hold nephrotoxins, metformin --Status post dialysis on saturday Hypokalemia --Telemetry --Replacement ordered Diabetes Sliding-scale insulin use Hypertension Resume amlodipine, metoprolol Hyperlipidemia Resume Statins GERD Resume omeprazole DVT prophylaxis with heparin subcutaneous Dispo: Will be discharge today VS,Fishbone, I+O VS, Fishbone, I+O Laboratory Tests 04/25/18 17:28 Calcium Level 9.5, Total Creatine Kinase 32 04/26/18 05:41 Calcium Level 9.3, Red Blood Count 3.54 L, Mean Corpuscular Volume 90.1, Mean Corpuscular Hemoglobin 29.4, Mean Corpuscular Hemoglobin Concent 32.6, Red Cell Distribution Width 15.1 H Vital Signs Date Time Temp Pulse Resp B/P (MAP) Pulse Ox O2 Delivery O2 Flow Rate FiO2 04/26/18 06:00 98.9 96 17 132/75 (94) 96 Room Air I&O- Last 24 Hours up to 6 AM 04/26/18 05:59 Intake Total 800 ml Output Total 750 ml Balance 50 ml GME ATTESTATION GME ATTESTATION My faculty preceptor for this patient encounter was physically present during the encounter and was fully available. All aspects of the patient interview, examination, medical decision making process, and medical care plan development were reviewed and approved by the faculty preceptor. The faculty preceptor is aware and concurs with the plan as stated in the body of this note and will attest to such by his/her cosignature. EDI BOLTON DO Apr 26, 2018 07:39
--- NOTE | 2018-04-26 13:22 | DS.PDOC ---
Discharge Summary General Date of Admission Apr 24, 2018 at 22:47 Date of Discharge 04/26/18 Primary Care Physician: Maribel Medrano Attending Physician: GRISEL MARTINEZ MD Specialist/Consultants Involve: LIZA LARA MD Discharge Summary PROCEDURES PERFORMED DURING STAY: Dialysis ADMITTING DIAGNOSES: 1. Chest pain 2. Rule out pulmonary embolism DISCHARGE DIAGNOSES: 1. Right-sided rib pain 2. End-stage renal disease 3. Hypokalemia 4. Diabetes 5. Hypertension COMPLICATIONS/CHIEF COMPLAINT: Pleuritic Chest Pain. HISTORY OF PRESENT ILLNESS/HOSPITAL COURSE: Patient is a 62-year-old female with past medical history of hyperlipi demia,hypertension, GERD, diabetes, multiorgan failure including renal failure and liver failure, following a hysterectomy. She is currently on dialysis, scheduled for Saturday, saturday and Saturday. She presented to her PCP on day of admission with right-sided chest pain, that was agrevated by deep breath and yawning. Her PCP ordered D-dimer, which is elevated. Patient was subsequently sent to the ED for further evaluation for possible PE. On intial presentation, patient was tachycardic. A V/Q scan was preformed, due to patient being unable to tolerate CT with contrast due to her renal failure. The V/Q scan was negative, and well as a lower extremity doppler for DVT. On physical examination, patient's pain was reproducible with palpation on her right chest wall, as well as her back, approximately around rib 4. Patient was admitted and pulmonary edema was ruled out by EKG, VQ scan, lower extremity ultrasound was also negative. Serial troponins were negative. X-ray rule out rib fracture. Respiratory panel was negative. Patient's pain was managed supportive care. Due to patient's end-stage renal disease. Nephrology was consulted for dialysis. Patient underwent dialysis on 04/25/2018. On day of discharge patient was advised breaths. She denied any chest pain, denies any breathing difficulty, continue to endorse rib pain that was reproducible with palpation. Patient was discharged in stable condition for home. DISCHARGE MEDICATIONS: Please see below. ALLERGIES: Please see below. PHYSICAL EXAMINATION ON DISCHARGE: VITAL SIGNS: Please see below. GENERAL APPEARANCE: Alert no acute distress, resting comfortably in bed SKIN:Right upper chest hemodialysis port LUNGS: Clear to auscultation bilaterally. Complaints of chest pain with full chest expansion HEART: Normal S1, S2. No murmurs, no rubs, no gallops ABDOMEN: Soft. No masses. Bowel sounds are present. Musculoskeletal: palpable tenderness on patient's rib approximately rib #4 on patients anterior chest wall EXTREMITIES: Moves all extremities equally. No gross deformities. LABORATORY DATA: Please see below. IMAGING: Lung scan. V/Q: 04/25/2018: Low probability scan for pulmonary embolism. Chest x-ray 04/24/2018: No acute disease. Right-sided tunnel catheter in place. Ultrasound bilateral duplex lower extremity:04/24/2018:No sonographic evidence of deep vein thrombosis. PROGNOSIS: Fair ACTIVITY: As tolerated DIET:. Tolerated DISCHARGE PLAN: Discharged home DISPOSITION: . DISCHARGE INSTRUCTIONS: 1. Follow-up with nephrology 2. Follow-up with PCP ITEMS TO FOLLOWUP ON ON OUTPATIENT: 1. Rib pain 2. End-stage renal disease 3. Echocardiogram was performed during hospital stay, report not currently a vailable. Please follow-up as an outpatient. DISCHARGE CONDITION: Stable TIME SPENT ON DISCHARGE: Greater than 35 minutes. Vital Signs/I&Os Vital Signs Date Time Temp Pulse Resp B/P (MAP) Pulse Ox O2 Delivery O2 Flow Rate FiO2 04/26/18 10:00 98.6 86 18 144/76 (98) 97 Room Air I&O- Last 24 Hours up to 6 AM 04/26/18 06:00 Intake Total 800 ml Output Total 750 ml Balance 50 ml Laboratory Data Labs 24H Laboratory Tests 2 04/25/18 17:27: Bedside Glucose (Misc Panel) 102 04/25/18 17:28: Anion Gap 8, Glomerular Filtration Rate 43.7L, Blood Urea Nitrogen 7#, Creatinine 1.31#H, Sodium Level 139, Potassium Level 3.5, Chloride Level 103, Carbon Dioxide Level 28, Calcium Level 9.5, Total Creatine Kinase 32, Creatine Kinase MB < 1.0, Creatine Kinase MB Relative Index 3.12, Troponin I < 0.02 04/25/18 20:01: Bedside Glucose (Misc Panel) 114 04/25/18 21:05: Total Creatine Kinase 27, Creatine Kinase MB < 1.0, Creatine Kinase MB Relative Index 3.70, Troponin I < 0.02 04/26/18 05:41: Nucleated Red Blood Cells % (auto) 0.0, Anion Gap 6L, Glomerular Filtration Rate 25.2L, Blood Urea Nitrogen 14#, Creatinine 2.11#H, Sodium Level 138, Potassium Level 3.4L, Chloride Level 105, Carbon Dioxide Level 27, Calcium Level 9.3 04/26/18 11:32: Bedside Glucose (Misc Panel) 144H CBC/BMP Laboratory Tests 04/25/18 17:28 Calcium Level 9.5, Total Creatine Kinase 32 04/26/18 05:41 Calcium Level 9.3, Red Blood Count 3.54 L, Mean Corpuscular Volume 90.1, Mean Corpuscular Hemoglobin 29.4, Mean Corpuscular Hemoglobin Concent 32.6, Red Cell Distribution Width 15.1 H FSBS Laboratory Tests Test 04/25/18 17:27 04/25/18 20:01 04/26/18 11:32 Range/Units Bedside Glucose (Misc Panel) 102 114 144 80-115 MG/DL Microbiology Microbiology 04/25/18 Respiratory Virus Panel (PCR) (VEE) - Final, Complete Discharge Medications Scheduled Alendronate Sodium (Fosamax) 70 Mg Tab, 70 MG PO 1XWK, (Reported) TAKES ON MONDAYS Amlodipine Besylate (Amlodipine Besylate) 5 Mg Tab, 5 MG PO DAILY, (Reported) Atorvastatin Calcium (Atorvastatin Calcium) 40 Mg Tab, 40 MG PO DAILY, (Reported) Metoprolol Tartrate (Metoprolol Tartrate) 25 Mg Tab, 25 MG PO DAILY, (Reported) Omeprazole (Omeprazole) 40 Mg Cap, 40 MG PO Q2D, (Reported) Sevelamer Carbonate (Sevelamer Carbonate) 800 Mg Tab, 800 MG PO TID, (Reported) Allergies Coded Allergies: Dog Dander (Unverified Allergy, Mild, eyes red, itchy, 04/24/18) Bismuth Subsalicylate (Unverified Adverse Reaction, Mild, vomiting, 04/24/18) GME ATTESTATION GME ATTESTATION My faculty preceptor for this patient encounter was physically present during the encounter and was fully available. All aspects of the patient interview, examination, medical decision making process, and medical care plan development were reviewed and approved by the faculty preceptor. The faculty preceptor is aware and concurs with the plan as stated in the body of this note and will attest to such by his/her cosignature. EDI BOLTON DO Apr 26, 2018 13:22
[2018-04-26 14:00] VITALS: BP 138/74
--- NOTE | 2018-04-27 09:31 | ECHO ---
DATE OF PROCEDURE: 04/26/2018 AGE: 62 GENDER: Female HEIGHT: 65 inches WEIGHT: 152 pounds BODY SURFACE AREA: 1.76 meters squared INPATIENT: [address] [place], [place] [id number] room 4213 REFERRING PHYSICIAN: Merline Alvarado INDICATION: Chest pain (unspecified). MEASUREMENTS: 2-D measurements: RV - 3.3 cm LV - 4.6 cm Septum 1.0 cm Posterior wall 1.0 cm Aortic root 2.9 cm LA - 3.7 cm LVEF 65% Doppler measurements: AV - 1.4 meters per second LVOT - 1.1 meters per second LVOT diameter 2.0 cm MV- E 51, A 99, E:E ratio 0.5 Early mitral deceleration time 230 milliseconds E prime 5.1, E/E prime ratio 10 PV - 0.8 meters per second Pulmonary artery acceleration time 116 milliseconds RVSP 27 mmHg IVC - 1.3 cm COMMENTS: Normal sinus rhythm without interventricular conduction disturbance. M-mode and two-dimensional echocardiography was performed along with pulsed, continuous wave, color flow and tissue Doppler studies. Normal cardiac chamber sizes, wall thickness and hyperkinetic wall motion. Normal assessment of mean left atrial pressure but Doppler evidence of a degree of impaired LV diastolic relaxation in keeping with her age. Normal estimated pulmonary arterial pressure. Normal IVC size and collapse against an elevated central venous pressure. Minuscule likely physiologic pericardial fluid posteriorly. Normal appearing and functioning valvular structures. Normal aortic root size. Although acute viral pericarditis could not be ruled out, no echocardiographic/Doppler evidence of a cardiac source of her chest pain. In particular no localized segmental LV wall motion abnormality, significant pulmonary hypertension, left or right ventricular outflow tract obstruction.
--- NOTE | 2018-04-27 12:08 | IPN ---
DATE OF SERVICE: 04/26/2018 SUBJECTIVE: The patient was seen and examined at the bedside today morning. She was dialyzed yesterday, 600 mL of fluid was removed. She is afebrile. Hemodynamically stable. She reports her pain is mainly in her right sided ribs. Otherwise she denies any shortness of breath. OBJECTIVE: VITAL SIGNS: Temperature is 98.6 degrees Fahrenheit, blood pressure 144/76, pulse is 86, respiratory rate of 18, saturating 97% on room air. INTAKE/OUTPUT: Urine output recorded as 950 mL so far today since overnight. Weight in the bed scale is 69.3 kg. PHYSICAL EXAMINATION: GENERAL: The patient is awake, alert, oriented times three, laying in bed, in no apparent distress. HEAD AND NECK EXAM: Extraocular muscles intact. Pupils equally round and reactive to light. Mucous membranes are moist. Neck is supple. There is no jugular venous distention (JVD). She has right internal jugular (IJ) tunnel hemodialysis catheter. CARDIOVASCULAR: S1, S2, regular rate. No murmur, rub or gallop. No edema of the bilateral lower extremities. RESPIRATORY: Chest is clear to auscultation bilaterally. Bilateral equal air entry. No rales or rhonchi. She has mild tenderness in the sided ribs. ABDOMEN: Abdomen is soft. Positive bowel sounds, nontender. No ascites. No organomegaly. MUSCULOSKELETAL: No clubbing or cyanosis. Pulses are 2+. CENTRAL NERVOUS SYSTEM: No focal deficit. Power is 5/5 in all extremities. LAB REVIEW: CBC showed a WBC of 9.1, hemoglobin 10.4, platelets are 237. BMP showed sodium 138, potassium 3.4, chloride 105, bicarbonate 27, BUN 14, creatinine is 2.1. CURRENT INPATIENT MEDICATIONS: The patient's medications were all reviewed by me. There is no change in the medications today as compared with yesterday. ASSESSMENT AND PLAN: 1. End-stage renal disease on hemodialysis. Patient developed acute renal failure after hemorrhagic shock recently after surgery. She is currently Saturday, Saturday, and Saturday dialysis. Labs are being monitored once a week. She needs to continue dialysis at this point because she still has interdialytic increase creatinine. She will be followed up as outpatient at dialysis center. 2. Right sided atypical chest pain. V/Q scan was negative. Doppler of the lower extremity was negative. Mostly likely it is costochondritis. Patient is symptomatically better. 3. Hypertension. Blood pressure is controlled with current dose of metoprolol and amlodipine. 4. Diabetes mellitus type 2. Patient should not get any metformin at this point since renal function is recovering. 5. Anemia and end-stage renal disease. Anemia is being managed as outpatient with Mircera protocol. 6. Hypokalemia. Patient was given a dose of potassium chloride only today morning. DISPOSITION: It is okay to discharge the patient from a nephrology standpoint. MTDD
== END 2018-04-26 14:30 | disposition home health service (06) ==
LOC: M ED 19:53 → M ED INP 22:47 → M MSPAV 04-25 16:30
PROVIDERS: ADMIT Internal Medicine; ATTEND Internal Medicine
DX: R07.81 Pleurodynia (principal); N18.6 End stage renal disease; Z79.899 Other long term (current) drug therapy; E87.6 Hypokalemia; E11.9 Type 2 diabetes mellitus without complications; E78.5 Hyperlipidemia, unspecified; K21.9 Gastro-esophageal reflux disease without esophagitis
CPT/HCPCS: 36415; 71045; 78582; 80048; 80076; 82550; 82553; 83735; 83880; 84436; 84443; 84479; 84484; 85025; 85027; 85610; 85730; 87486; 87581; 87633; 87798; 90682; 93005; 93041; 93306; 93970; 94760; 96360; 96361; 99285; A9540; A9567; G0008; J3475

== ENCOUNTER → 2018-05-19 | Outpatient (REF) | payer OTHER ==
[~2018-05-19] MED LIST changes: +AMLO5TAB6 PO; +METO25TA4 PO; +SEVE800T3 PO; +metoprolol
[2018-05-19 19:33] LABS: CREATININE, URINE 41.8 MG/DL
[2018-05-19 19:34] LABS: CREATININE CLEARANCE, URINE 38.1 ML/MIN (75-115); CREATININE, SERUM 1.6 MG/DL (0.6-1.0)
== END ==
LOC: M LAB REF 17:36
PROVIDERS: ATTEND Internal Medicine Nephrology
DX: Z99.2 Dependence on renal dialysis (principal)

== ENCOUNTER → 2018-05-29 | Outpatient (REF) | payer OTHER ==
[2018-05-29 13:29] LABS: PERCENT SATURATION 35.6 % (13.2-45.0)
== END ==
LOC: M LAB REF 12:54
PROVIDERS: ATTEND Internal Medicine Nephrology
DX: N18.3 Chronic kidney disease, stage 3 (moderate) (principal); D63.1 Anemia in chronic kidney disease

== ENCOUNTER → 2018-08-13 | Outpatient (CLI) | payer OTHER ==
[~2018-08-13] MED LIST changes: -ASPI1TAB PO; +ASPI81TA26 PO
[2018-08-13 17:17] LABS: ALBUMIN 3.9 GM/DL (3.2-5.2); ALT/SGPT 23 U/L (12-78); BILIRUBIN,DIRECT < 0.1 MG/DL (0.0-0.2); BILIRUBIN,TOTAL 0.3 MG/DL (0.2-1.0); CHOLESTEROL LEVEL 287 MG/DL (<200); CHOLESTEROL RISK RATIO 4.948 (<5); CPK CREATINE PHOSPHOKINASE 37 U/L (26-192); FREE T3 3.4 PG/ML (2.2-4.0); HDL CHOLESTEROL 58 MG/DL (>40); LDL CHOLESTEROL 163 MG/DL (<100); NON-HDL-C 229 MG/DL; TOTAL PROTEIN 7.1 GM/DL (6.4-8.2); TRIGLYCERIDES LEVEL 331 MG/DL (<150)
== END ==
LOC: M LRY 09:47
PROVIDERS: ATTEND Family Medicine
DX: E78.2 Mixed hyperlipidemia (principal); E03.9 Hypothyroidism, unspecified

== ENCOUNTER → 2018-09-18 | Outpatient (CLI) | payer OTHER ==
[2018-09-18 11:48] LABS: ALBUMIN 3.7 GM/DL (3.2-5.2); ALT/SGPT 26 U/L (12-78); BILIRUBIN,DIRECT < 0.1 MG/DL (0.0-0.2); BILIRUBIN,TOTAL 0.3 MG/DL (0.2-1.0); CHOLESTEROL LEVEL 152 MG/DL (<200); CHOLESTEROL RISK RATIO 2.491 (<5); CPK CREATINE PHOSPHOKINASE 63 U/L (26-192); HDL CHOLESTEROL 61 MG/DL (>40); LDL CHOLESTEROL 68 MG/DL (<100); NON-HDL-C 91 MG/DL; TOTAL PROTEIN 7.3 GM/DL (6.4-8.2); TRIGLYCERIDES LEVEL 115 MG/DL (<150)
== END ==
LOC: M LRY 09:19
PROVIDERS: ATTEND Family Medicine
DX: E78.2 Mixed hyperlipidemia (principal)

== ENCOUNTER → 2018-11-21 | Outpatient (CLI) | payer OTHER ==
[2018-11-21 13:29] LABS: HEMATOCRIT 40.8 % (36.0-47.0); HEMOGLOBIN 13.1 g/dl (12.0-15.5); MEAN CORPUSCULAR HEMOGLOBIN 31.3 pg (27.0-33.0); MEAN CORPUSCULAR HGB CONC 32.1 g/dl (32.0-36.5); MEAN CORPUSCULAR VOLUME 97.6 fl (80.0-96.0); PLATELET COUNT, AUTOMATED 217 10^3/uL (150-450); RED BLOOD COUNT 4.18 10^6/uL (4.00-5.40); WHITE BLOOD COUNT 6.3 10^3/uL (4.0-10.0)
[2018-11-21 13:44] LABS: ALBUMIN 3.9 GM/DL (3.2-5.2); BILIRUBIN,TOTAL 0.3 MG/DL (0.2-1.0); CALCIUM LEVEL 9.6 MG/DL (8.8-10.2); CHOLESTEROL RISK RATIO 2.707 (<5); CREATININE FOR GFR 1.38 MG/DL (0.55-1.30); POTASSIUM SERUM 4.4 MEQ/L (3.5-5.1); THYROID STIMULATING HORMONE 1.03 uIU/ML (0.358-3.740); TOTAL PROTEIN 7.5 GM/DL (6.4-8.2)
== END ==
LOC: M LRY 08:27
PROVIDERS: ATTEND Family Medicine
DX: E78.2 Mixed hyperlipidemia (principal); I10 Essential (primary) hypertension